=== PATIENT | male | born 1940 | race Native Hawaiian/Other Pacific Islander ===

== ENCOUNTER 2017-05-18 12:53 | Emergency (ER) | payer OTHER, MEDICARE ==
[2017-05-18 12:53] VITALS: BMI 23.0
[2017-05-18 13:35] VITALS: TEMP 98.4
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
[2017-05-18 14:21] LABS: BASO # 0.03 K/mm3 (0.0-2.0); BASO % 0.4 % (0.0-3.0); EOS # 0.4 (0.0-0.7); EOS % 5.8 % (1.5-5.0); GRAN # 4.4 (1.4-6.5); HEMOGLOBIN 15.4 g/dL (14.0-18.0); LYMPH # 1.9 (1.2-3.4); LYMPH % 25.8 % (22.0-35.0); MEAN CELL VOLUME 92.1 fl (80.0-105.0); MEAN CORPUSCULAR HGB CONC 33.7 g/dl (31.0-37.0); MEAN PLATELET VOLUME 9.9 fl (7.0-11.0); MONO # 0.7 (0.1-0.6); RBC 4.96 10^6/uL (3.5-6.1); RED CELL DISTRIBUTION WIDTH 13.5 % (11.5-14.5); WHITE BLOOD COUNT 7.5 10^3/ul (4.5-11.0)
[2017-05-18 14:30] LABS: ALB/GLOB RATIO 1.6 (1.1-1.8); ALBUMIN 4.4 g/dL (3.0-4.8); ALT/SGPT 37 U/L (7-56); AST/SGOT 27 U/L (17-59); BLOOD UREA NITROGEN 14 mg/dL (7-21); CALCIUM 10.1 mg/dL (8.4-10.5); GFR AFRICAN-AMERICAN > 60; GFR NON-AFRICAN AMERICAN > 60
[2017-05-18 14:41] LABS: TROPONIN I < 0.01 ng/mL
[2017-05-18 15:28] VITALS: RESP 16
--- NOTE | 2017-05-18 16:25 | RAD ---
PROCEDURE: Radiographs of the Left Shoulder HISTORY: possible shoulder dislocation COMPARISON: Comparison made with prior left shoulder radiographs dated 09/07/2014. FINDINGS: BONES: Normal. No fracture. 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 SOFT TISSUES: Normal. OTHER FINDINGS: None. IMPRESSION: No evidence of acute displaced fracture nor dislocation. 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
--- NOTE | 2017-05-18 16:36 | RAD ---
PROCEDURE: CHEST RADIOGRAPH, 1 VIEW HISTORY: chest pain COMPARISON: Comparison chest dated 09/07/2014 FINDINGS: LUNGS: Minor left basilar atelectasis and or scarring. PLEURA: No pneumothorax or pleural fluid seen. CARDIOVASCULAR: Sternotomy wires and CABG clips again noted. OSSEOUS STRUCTURES: No significant abnormalities. VISUALIZED UPPER ABDOMEN: Normal. OTHER FINDINGS: None. IMPRESSION: Minor left basilar atelectasis or scarring
[2017-05-18 17:08] VITALS: BP 133/62; PULSE 53; O2SAT 99
--- NOTE | 2017-05-19 09:47 | CARD ---
APPROVED REPORT EKG Measurement Heart [id number] <Conclusion> Sinus bradycardia Rightward axis RSR' or QR pattern in V1 suggests right ventricular conduction delay
== END 2017-05-18 17:31 | disposition home or self-care (01) ==
LOC: ED 12:53
DX: S20.219A Contusion of unspecified front wall of thorax, initial encounter (principal); S40.012A Contusion of left shoulder, initial encounter; V49.9XXA Car occupant (driver) (passenger) injured in unspecified traffic accident, initial encounter; I50.9 Heart failure, unspecified; I10 Essential (primary) hypertension

== ENCOUNTER 2018-02-10 10:34 | Day surgery (SDC) | payer MEDICARE ==
[2018-02-04 15:29] VITALS: BMI 19.4
[2018-02-10 11:07] LABS: BASO # 0.03 K/mm3 (0.0-2.0); BASO % 0.3 % (0.0-3.0); EOS # 0.3 (0.0-0.7); EOS % 2.4 % (1.5-5.0); GRAN # 7.91 (1.4-6.5); GRAN % 70.2 % (50.0-68.0); HEMOGLOBIN 13.5 g/dL (14.0-18.0); LYMPH # 1.7 (1.2-3.4); LYMPH % 15.2 % (22.0-35.0); MEAN CELL VOLUME 89.3 fl (80.0-105.0); MEAN CORPUSCULAR HGB CONC 33.6 g/dl (31.0-37.0); MEAN PLATELET VOLUME 8.9 fl (7.0-11.0); MONO # 1.3 (0.1-0.6); MONO % 11.9 % (1.0-6.0); RBC 4.5 10^6/uL (3.5-6.1); RED CELL DISTRIBUTION WIDTH 13.7 % (11.5-14.5); WHITE BLOOD COUNT 11.3 10^3/uL (4.5-11.0)
[2018-02-10 11:14] LABS: INR 1.26; PROTHROMBIN TIME 14.6 SECONDS (9.4-12.5)
[2018-02-10 11:24] LABS: BLOOD UREA NITROGEN 20 mg/dL (7-21); CALCIUM 9.4 mg/dL (8.4-10.5); GFR NON-AFRICAN AMERICAN > 60
[2018-02-10] MEDS ORDERED: Lidocaine 1% Inj (20ml) ONE (14:00)
[2018-02-10] MEDS ORDERED: Midazolam 2 MG/2 ML VIAL ONE (14:00)
[2018-02-10] MEDS ORDERED: Oxycodone/Acetaminophen 5/325 mg Tab PO PRN (15:18)
[2018-02-10] MEDS ORDERED: Midazolam 2 MG/2 ML VIAL IVP ONE (15:27)
[2018-02-10] MEDS ORDERED: Sodium Chloride 0.45% 1,000 ML IV SCH (15:30)
[2018-02-10 15:53] VITALS: BP 119/72; PULSE 80; RESP 18; TEMP 99.1; O2SAT 97
--- NOTE | 2018-02-10 18:09 | CT ---
PROCEDURE: CT guided right middle lobe lung biopsy. HISTORY: 3 cm noncalcified right middle lobe lung mass. Evaluate for malignancy PHYSICIAN(S): Shakeel Lynch MD. TECHNIQUE: The relative risks and indications of the procedure were explained to the patient and consent obtained. The patient was placed supine on the CT scanner and preliminary images through the mid to upper lungs obtained. Conscious sedation and monitoring were provided throughout the procedure by a nurse. There is a 3 cm noncalcified mass with irregular borders in the right middle lobe anteriorly. Innumerable sub centimeter nodules are also noted bilaterally.. A right anterior oblique approach was selected and the area prepped and draped in the usual sterile fashion. 1% Xylocaine was used to anesthetize the skin and soft tissues. A 19 gauge guiding needle was advanced into the 3 cm right middle lobe mass. Its position was confirmed with CT. Using coaxial technique, multiple core biopsies were obtained. The postprocedure images show no evidence of large pneumothorax or significant hemorrhage.. IMPRESSION: 1. CT-guided right middle lobe lung biopsy as described above.
--- NOTE | 2018-02-10 18:25 | RAD ---
Date of service: 02/10/2018 HISTORY: Follow-up right lung biopsy. Relevant interventional procedure(s): February 10, 2018 right middle lobe lung mass biopsy. COMPARISON: No prior. FINDINGS: LUNGS: No active pulmonary disease. PLEURA: No pneumothorax identified. CARDIOVASCULAR: No atherosclerotic calcification present No radiographic findings to suggest acute or significant cardiovascular disease. Incidental Finding(s): Postoperative changes related to sternotomy. OSSEOUS STRUCTURES: No significant abnormalities. VISUALIZED UPPER ABDOMEN: Normal. OTHER FINDINGS: None. IMPRESSION: No pneumothorax identified following right middle lobe lung biopsy.
== END 2018-02-10 18:30 | disposition home or self-care (01) ==
LOC: SDS 10:34
PROVIDERS: ATTEND Radiology Vascular & Interventional Radiology
DX: C34.2 Malignant neoplasm of middle lobe, bronchus or lung (principal); I25.10 Atherosclerotic heart disease of native coronary artery without angina pectoris; I50.9 Heart failure, unspecified
CPT/HCPCS: 32405; 36415; 71045; 77012; 80048; 85025; 85610; 85730; 88305; J2250; J2405; J3010; J7030